=== PATIENT | male | born 1960 | race Hispanic/Latino ===

== ENCOUNTER 2019-04-29 18:32 | Emergency (ER) | payer OTHER ==
[~2019-04-29 18:32] MED LIST: ISOVUE-370 76%-LOCM 1 ML ONE
[2019-04-29 19:35] LABS: #Eosinphils 0.4 thou/uL (0.0-0.7); #Lymphocytes 1.9 thou/uL (1.20-3.40); #Monocytes 0.9 thou/uL (0.11-0.59); #Neutrophils 7.5 thou/uL (1.40-6.50); %Basophils 0.3 % (0.0-1.0); %Lymphocytes 17.9 % (21.0-51.0); %Monocytes 8.3 % (0.0-10.0); %Neutrophils 69.6 % (42.0-75.0); Mean Corpuscular HGB CONC 32.5 g/dL (32.0-36.0); Mean Corpuscular Hemoglobin 29.8 pg (27.0-31.0); Mean Corpuscular Volume 91.7 fL (78.0-98.0); Mean Platelet Volume 6.4 fL (7.4-10.4); Platelet Count 268 thou/uL (130-400); RBC Distribution Width 11.6 % (11.5-14.5); Red Blood Cell (RBC) Count 4.01 mill/uL (4.70-6.10); White Blood Cell (WBC) Count 10.8 thou/uL (4.8-10.8)
[2019-04-29 20:00] LABS: ALT (SGPT) 10 U/L (8-55); AST (SGOT) 15 U/L (5-34); Alkaline Phosphatase 123 U/L (40-150); Anion Gap 11 mmol/L (10-20); BUN (Urea Nitrogen) 13 mg/dL (8.4-25.7); Bilirubin, Total 0.5 mg/dL (0.2-1.2); CK (CPK) 99 U/L (30-200); Calc. Creatinine Clearance 0 mL/min (70-130); Calcium 9.4 mg/dL (7.8-10.44); Carbon Dioxide 29 mmol/L (22-29); Chloride 101 mmol/L (98-107); Estimated GFR-MDRD Greater than 90; Globulin 3.4 g/dL (2.4-3.5); Glucose 96 mg/dL (70-105); Lipase 10 U/L (8-78); Potassium 3.6 mmol/L (3.5-5.1); Protein, Total 7.4 g/dL (6.0-8.3); Sodium 137 mmol/L (136-145)
[2019-04-29] MEDS ORDERED: Aspirin Chewable 81 MG TAB ONE ×2 (20:10→20:12)
--- NOTE | 2019-04-29 20:15 | RAD ---
PORTABLE CHEST: 04/29/19 PROVIDED CLINICAL HISTORY: Cough. FINDINGS: Comparison 04/21/19. The cardiac silhouette appears normal. There is abnormal opacity overlying the right aspect of the mi d to lower thoracic spine, incompletely characterized on the basis of this study but suspicious for m ediastinal or parenchymal mass. The lungs appear otherwise clear. There is no pleural fluid or pneumo thorax apparent. IMPRESSION: Abnormal appearance to the mediastinum, suspicious for underlying mass. Correlation with CT is recomm ended. POS: RAYMOND
--- NOTE | 2019-04-29 21:29 | CT ---
EXAM: CT Chest W Con PROVIDED CLINICAL HISTORY: Chest pain, abnormal chest radiograph COMPARISON: None FINDINGS: There is a heterogeneously enhancing mass measuring about 3.6 x 5.5 cm in greatest transverse dimensi ons at the medial aspect of the right hemithorax within the superior segment of the right lower lobe. This extensively abuts the mediastinum and bronchus intermedius. There is an enlarged right hil ar lymph node measuring about 1.9 cm in transverse dimension. The heart, pericardium and great vessels demonstrate an otherwise unremarkable CT appearance of the e xception of vascular calcification. The lungs appear otherwise free of significant opacity. There is no pleural fluid or pneumothorax apparent. The airway appears patent and of normal caliber. The visualized portions of the upper abdomen demonstrate no acute abnormality. Gallstones are noted. The osseous structures demonstrate no concerning lytic or blastic lesions. IMPRESSION: 5.5 cm superior segment right lower lobe mass, suspicious for malignancy.
--- NOTE | 2019-05-02 13:04 | EKG ---
Test Reason : CP Blood Pressure : / mmHG Vent. Rate : 084 BPM Atrial Rate : 084 BPM P-R Int : 136 ms QRS Dur : 092 ms QT Int : 338 ms P-R-T Axes : 039 050 033 degrees QTc Int : 399 ms Normal sinus rhythm Normal ECG Confirmed by MANISHA NERI, KENNY Mcmillan ([id number]), editor producer ZANE GORDON ([id number]) on 05/02/2019 1:04:13 PM Referred By: JOE Confirmed By:KENNY DYER MD
== END 2019-04-29 21:59 | disposition home or self-care (01) ==
LOC: ERS 18:32
DX: R91.8 Other nonspecific abnormal finding of lung field (principal); R05 Cough
CPT/HCPCS: 71045; 71260; 80053; 82550; 83690; 83880; 84484; 85025; 93005; Q9966

== ENCOUNTER 2019-05-04 06:37 | Day surgery (SDC) | payer OTHER ==
[2019-04-30 15:23] VITALS: BMI 21.7
--- NOTE | 2019-04-30 15:47 | HP ---
HISTORY OF PRESENT ILLNESS: This is a 58-year-old gentleman, speaks no Maltese, who was brought to the office with the help of a form carpenter after he presented to the ER with a several-month history of coughing, chest pain, sweats, weight loss of about 10 pounds. Chest x-ray showed a right lower lobe mass in the superior segment. CAT scan of his chest confirmed the 5 x 5 superior segment right lower lobe mass. There appeared to be some mediastinum and bronchus intermedius obstruction. He has had a cough, which is nonproductive. No hemoptysis. He has never smoked. PAST MEDICAL HISTORY: Pertinent only for diabetes. He takes unknown medication. PREVIOUS SURGERIES: Appendix. 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 Alcohol, his says he drinks over the weekend. No substance abuse. REVIEW OF SYSTEMS: Ten-point negative. PHYSICAL EXAMINATION: VITAL SIGNS: Saturations are 96% on room air, pulse 80, respiratory rate 18, and blood pressure 130/80. There is no clubbing. There is no adenopathy. CHEST: Decreased breath sounds. Bilateral rhonchi, right greater than left. CARDIAC: Normal S1 and S2. No gallop. ABDOMEN: Soft without any masses. IMPRESSION: 1. Right lower lung superior segment mass, rule out bronchogenic carcinoma. 2. Nonsmoker. 3. Diabetes. Diagnostic bronchoscopy and biopsies are performed. Further recommendation as above. Job ID: [id number]
[2019-05-04] MEDS ORDERED: Lidocaine 2% Jelly 5 ML TUBE ONE (07:59)
[2019-05-04] MEDS ORDERED: Benzocaine 20% Spray 60 ML CAN ONE (08:10)
[2019-05-04] MEDS ORDERED: Lidocaine 1% (PF) 30 ML VIAL ONE ×2 (08:32→09:08)
[2019-05-04] MEDS ORDERED: Fentanyl 250 MCG/5 ML VIAL ONE (08:41)
[2019-05-04] MEDS ORDERED: Fentanyl 100 MCG/2 ML VIAL ONE (08:41)
[2019-05-04] MEDS ORDERED: Midazolam HCl 2 mg/2 ml Vial ONE (08:41)
[2019-05-04] MEDS ORDERED: Midazolam HCl 5 mg/5 ml Vial ONE (08:42)
--- NOTE | 2019-05-04 10:27 | OP ---
DATE OF PROCEDURE: 05/04/2019 PROCEDURE PERFORMED: Bronchoscopy with biopsy. INDICATION: Right lower lung mass, rule out bronchogenic carcinoma. POSTBRONCHOSCOPY DIAGNOSIS: Right lower lung mass, rule out bronchogenic carcinoma. DESCRIPTION OF PROCEDURE: After informed consent, the patient received 4 mL of 4% lidocaine and DuoNeb. During the procedure he received a total of 2 of Versed IV and 50 of fentanyl IV. The flexible Olympus 2.8 bronchoscope was passed via the right nostril. Pharynx, hypopharynx, and vocal cords were visualized, which were unremarkable. On entering the trachea, this was normal. [place] was sharp. The right lung was inspected initially. Right upper lobe was normal. The right bronchus intermedius was slightly nodular. The superior segment area had a completely occluded nodular, friable, bloody mass. The rest of the basilar segments visualized and unremarkable. This area was lavaged with normal saline. The left lung was inspected thereafter, which was completely normal. Multiple biopsies x4 and brushings from the right lower lung superior segment mass lesions were done. The patient tolerated the procedure well. There was bleeding, which was controlled with epinephrine, a total of 14 mL of 1:10,000. The brushing was sent for cytology. Washing was sent for cytology as well as acid-fast stain, Gram stain culture, and fungal smear and culture. Biopsy for histopathology. The patient otherwise tolerated the procedure well. BRIEF DISCHARGE NOTE: Results of the biopsy and brushings will be made available to the patient. Further recommendations as above. Job ID: [id number]
[2019-05-07 09:11] LABS: Fungus Stain Final report (.)
== END 2019-05-04 10:35 | disposition home or self-care (01) ==
LOC: SDC 06:37
PROVIDERS: ATTEND Internal Medicine Pulmonary Disease
PROC: 0B9F8ZX Drainage of Right Lower Lung Lobe, Via Natural or Artificial Opening Endoscopic, Diagnostic (ICD-10-PCS; principal; 2019-05-04)
PROC: 0B9C8ZX Drainage of Right Upper Lung Lobe, Via Natural or Artificial Opening Endoscopic, Diagnostic (ICD-10-PCS; principal; 2019-05-04)
PROC: 0BDF8ZX Extraction of Right Lower Lung Lobe, Via Natural or Artificial Opening Endoscopic, Diagnostic (ICD-10-PCS; principal; 2019-05-04)
DX: C34.31 Malignant neoplasm of lower lobe, right bronchus or lung (principal); E11.9 Type 2 diabetes mellitus without complications; Z79.84 Long term (current) use of oral hypoglycemic drugs; Z79.899 Other long term (current) drug therapy
CPT/HCPCS: 87070; 87102; 87116; 87205; 87206; 88104; 88112; 88305; 88313; 99152; 99153; J2001; J2250; J3010; J7620

== ENCOUNTER 2019-05-14 07:22 | Outpatient (CLI) | payer OTHER ==
--- NOTE | 2019-05-14 13:37 | PET ---
PET SCAN WITH CT ATTENUATION CORRECTION: HISTORY: Right perihilar/superior segment right lower lobe mass. COMPARISON: None. CORRELATION: CT chest dated 04/29/19. TECHNIQUE: PET scanning with CT attenuation correction is performed from the base of the brain to the proximal t highs following the intravenous administration of 10.2 mCi F18-FDG. FINDINGS: HEAD/NECK: Increased FDG avidity involving the right thyroid lobe with a maximum SUV of 3.4. CHEST: Increased FDG avidity in the right perihilar region, superior segment of the right lower lobe, as wel l as the right aspect of the mediastinum. Maximum SUV ranges between [address] used for attenuation correction demonstrates dependent atelectatic changes. ABDOMEN/PELVIS: Increased FDG avidity involving the right adrenal gland with a maximum SUV of 4.5. Increased FDG avid ity involving the left adrenal gland with a maximum SUV of 23.8. OSSEOUS STRUCTURES: No abnormal FDG localization. IMPRESSION: 1. Mass involving the superior segment of the right lower lobe with extension to the right perihilar region and right mediastinum. There is associated marked SUV avidity. 2. FDG avidity involving both adrenal glands compatible with adrenal metastasis. 3. Abnormal FDG avidity involving the right thyroid lobe, incompletely evaluated. Nonemergent thyroi d ultrasound. POS: RAYMOND
== END 2019-05-14 07:23 | disposition home or self-care (01) ==
LOC: PET 07:22
PROVIDERS: ATTEND Internal Medicine Pulmonary Disease
DX: C34.90 Malignant neoplasm of unspecified part of unspecified bronchus or lung (principal); E11.9 Type 2 diabetes mellitus without complications; R91.8 Other nonspecific abnormal finding of lung field
CPT/HCPCS: 78815; A9552

== ENCOUNTER 2019-05-19 07:21 | Outpatient (CLI) | payer OTHER ==
--- NOTE | 2019-05-19 08:51 | CT ---
CT BRAIN WITH AND WITHOUT IV CONTRAST: HISTORY: Malignant neoplasm of right bronchus, exam requested for staging FINDINGS: No evidence of infarct, hemorrhage, mass, midline shift or abnormal extra axial fluid collections is seen. The ventricular size is normal and the basilar cisterns are patent. No abnormal postcontrast enhancement is seen. The bony calvarium is intact. The visualized paranasal sinuses are well-aerated. IMPRESSION: Normal exam.
[2019-05-19] MEDS ORDERED: Iopamidol 370 76% 100 ML VIAL ONE (14:43)
== END 2019-05-19 07:22 | disposition home or self-care (01) ==
LOC: CT 07:21
PROVIDERS: ATTEND Internal Medicine Hematology & Oncology
DX: C34.31 Malignant neoplasm of lower lobe, right bronchus or lung (principal)
CPT/HCPCS: 70470; Q9967

== ENCOUNTER 2019-07-28 09:47 | Outpatient (CLI) | payer OTHER ==
[~2019-07-28 09:47] MED LIST changes: -ISOVUE-370 76%-LOCM 1 ML ONE; +Iopamidol 370 76% 100 ML VIAL ONE
--- NOTE | 2019-07-28 11:59 | CT ---
CT THORAX WITH CONTRAST CT ABDOMEN WITH CONTRAST: DATE: 07/28/2019 HISTORY: 58-year-old male with right lower lobe lung cancer C 34.31 COMPARISON: Chest CT of 04/29/2019 and PET scan of 05/14/2019 TECHNIQUE: IV iodinated contrast media: Administered Oral contrast media: Not administered Single phase scans of thorax and abdomen. FINDINGS: The mass at the superior segment of the right lower lobe, previously measuring approximately 5.5 x 3. 5 x 5.5 cm, currently measures approximately 2 x 1.5 x 3.5 cm. It broadly abuts the posterior aspect of the right hilum. Currently, no definite mediastinal involvement or mediastinal lymphadenopa thy. The previously demonstrated 1.9 cm right hilar lymph node is much smaller and currently difficult to appreciate. The previously demonstrated 1.5 x 1 cm left adrenal nodule which was FDG-dario d, is no longer visualized. There is no right adrenal nodule visible either on the current CT or previous, despite the tiny focus of increased uptake in the right adrenal on the PET scan. No suspicious other pulmonary nodules. Trachea and major bronchi are patent and clear. No thoracic ao rtic aneurysm, cardiomegaly, pericardial effusion, pleural effusion, or pneumothorax. Multiple tiny calcified gallstones have migrated to the proximal body near the neck of the gallbladder. The gallbla dder is collapsed, nearly empty. The liver, abdominal aorta, bilateral kidneys, right adrenal, and spleen, appear normal. The visualized upper portions of the colon and small intestine, are unremarkab le. No evidence of mesenteric, retroperitoneal, or se hepatis lymphadenopathy. IMPRESSION: 1) significant interval response to therapy. The right lower lobe primary lung cancer has significant ly decreased in size. 2) the metastatic left adrenal nodule has resolved on imaging.
== END 2019-07-28 09:48 | disposition home or self-care (01) ==
LOC: SCSCT 09:47
PROVIDERS: ATTEND Internal Medicine Hematology & Oncology
DX: C34.31 Malignant neoplasm of lower lobe, right bronchus or lung (principal)
CPT/HCPCS: 71260; 74160; Q9967

== ENCOUNTER 2020-03-15 08:36 | Outpatient (CLI) | payer BC ==
--- NOTE | 2020-03-15 12:23 | CT ---
CHEST AND ABDOMEN CT SCAN WITH IV CONTRAST: Date: 03/15/2020 HISTORY: C34.31, malignant neoplasm of lower lobe right bronchus or lung. COMPARISON: 11/13/2019. FINDINGS: Again noted is fairly extensive bilateral chronic lung change including some subpleural honeycombing and linear and interstitial parenchymal changes, as well as some subtle right lower lobe bronchiectas is, all of which are stable. No pleural effusion or pericardial effusion. No mediastinal mass or prakash opathy. Liver appears unremarkable without evidence for metastasis. Status post cholecystectomy. Stable appea ring adrenal glands. Pancreas, spleen, and kidneys appear unremarkable. No evidence for retroperitone al adenopathy. IMPRESSION: 1. Stable bilateral chronic lung changes. 2. No evidence for metastasis. 3. Stable appearance from prior study of 11/13/2019. POS: RRE
== END 2020-03-15 08:37 | disposition home or self-care (01) ==
LOC: SCSCT 08:36
PROVIDERS: ATTEND Internal Medicine Hematology & Oncology
DX: C34.31 Malignant neoplasm of lower lobe, right bronchus or lung (principal)
CPT/HCPCS: 71250; 74160

== ENCOUNTER 2020-09-05 08:43 | Outpatient (CLI) | payer OTHER ==
--- NOTE | 2020-09-05 09:51 | CT ---
EXAM: CT chest and abdomen with IV contrast: HISTORY: Malignant neoplasm of lower lobe, right bronchus or lung. COMPARISON: 06/13/2020 FINDINGS: CT THORAX: Lungs: Again noted are the peripherally located interstitial densities within the lungs bilaterally g reater in the lower lobe suggesting chronic interstitial lung changes. A 4 mm pulmonary nodule is again seen in the right middle lobe which is similar in size compared to prior study as well as study on 07/28/2019. A few stable pleural-based nodular densities are seen along the minor fissure. Calcified granuloma is present in the lingula. No new discrete pulmonary nodule or mass is identified . No filling defects are seen in the visualized large airways. Pleura: No pleural effusion. Lymph nodes: No enlarged lymph nodes are seen by CT size criteria. Mediastinum: Right subclavian Mediport catheter remains in place. Vascular calcifications are seen in the aortic arch. Chest wall: No abnormalities CT ABDOMEN: Liver: Within normal limits. Gallbladder: Surgically absent.\ Pancreas: Within normal limits. Spleen: Within normal limits. Adrenal glands: Within normal limits. Kidneys: Within normal limits. Bowel: Normal in caliber. Adenopathy:No enlarged lymph nodes are seen in the abdomen. Peritoneum: No free fluid or fluid collection is seen. No free intraperitoneal gas is identified. Abdominal wall: No abnormalities seen. Osseous structures: Degenerative changes in the spine. No suspicious lytic or sclerotic osseous lesio n is seen. IMPRESSION: 1. No CT findings to suggest metastatic disease involving the chest or abdomen. 2. Stable nonspecific 4 mm pulmonary nodule right middle lobe with stable chronic lung changes bilate rally. 3. Postcholecystectomy changes.
[2020-09-05] MEDS ORDERED: Iopamidol-370 76% 500 ML 1 ML ONE (12:15)
== END 2020-09-05 08:44 | disposition home or self-care (01) ==
LOC: BICCT 08:43
PROVIDERS: ATTEND Internal Medicine Hematology & Oncology
DX: C34.31 Malignant neoplasm of lower lobe, right bronchus or lung (principal); R91.1 Solitary pulmonary nodule; J98.4 Other disorders of lung; Z90.49 Acquired absence of other specified parts of digestive tract
CPT/HCPCS: 71260; 74160; Q9967

== ENCOUNTER 2021-02-27 09:03 | Outpatient (CLI) | payer OTHER ==
[2021-02-27] MEDS ORDERED: Iopamidol-370 76% 500 ML 1 ML ONE (11:02)
== END 2021-02-27 09:04 | disposition home or self-care (01) ==
LOC: BICCT 09:03
PROVIDERS: ATTEND Internal Medicine Hematology & Oncology
DX: C34.31 Malignant neoplasm of lower lobe, right bronchus or lung (principal)
CPT/HCPCS: 71260; 74160; Q9967

== ENCOUNTER 2021-09-14 09:01 | Outpatient (CLI) | payer OTHER | END 2021-09-14 09:02 | disposition home or self-care (01) | LOC: MRI 09:01 | PROVIDERS: ATTEND Radiology Radiation Oncology | DX: C79.31 Secondary malignant neoplasm of brain (principal) | CPT/HCPCS: 70553 ==

== ENCOUNTER 2021-09-28 08:24 | Outpatient (CLI) | payer OTHER | END 2021-09-28 08:25 | disposition home or self-care (01) | LOC: CT 08:24 | PROVIDERS: ATTEND Internal Medicine Hematology & Oncology | DX: C34.31 Malignant neoplasm of lower lobe, right bronchus or lung (principal); R91.1 Solitary pulmonary nodule; J84.10 Pulmonary fibrosis, unspecified | CPT/HCPCS: 71260; 74160; 78306; A9503 ==

== ENCOUNTER 2021-10-29 17:30 | Inpatient (IN) | payer MEDICAID, SELFPAY ==
[2021-10-29] MEDS ORDERED: Acetaminophen 325 MG TAB PO PRN (21:27)
[2021-10-29] MEDS ORDERED: Morphine 4 MG/ML VIAL SLOW IVP PRN (21:39)
[2021-10-29] MEDS ORDERED: Dextrose 5% in Water 1,000 ML IV PRN (21:44)
[2021-10-29] MEDS ORDERED: Dextrose 50% Abboject 50 ML SYRINGE SLOW IVP PRN (21:44)
[2021-10-29] MEDS ORDERED: Fentanyl CADD 100 ML IV SCH (21:45)
[2021-10-29] MEDS ORDERED: fentaNYL Citrate-0.9 % NaCl/PF 100 ML IV SCH (21:45)
[2021-10-29] MEDS ORDERED: Morphine 2 MG/ML VIAL SLOW IVP PRN (21:45)
[2021-10-29] MEDS ORDERED: Propofol BOLUS 1,000 MG/100 ML VIAL IV PRN (21:45)
[2021-10-29] MEDS ORDERED: Pantoprazole 40 MG VIAL IVP SCH (21:45)
[2021-10-29] MEDS ORDERED: DISCONTINUE PREVIOUS NARCOTIC PAIN MEDICATIONS AND BENZODIAZEPINES FS SCH (21:45)
[2021-10-29] MEDS ORDERED: Fentanyl BOLUS 250 ML IVPB PRN (21:45)
[2021-10-29 22:18] LABS: #Lymphocytes 0.5 thou/uL (1.20-3.40); #Monocytes 0.2 thou/uL (0.11-0.59); #Neutrophils 7.5 thou/uL (1.40-6.50); %Basophils 0.2 % (0.0-1.0); %Eosinophils 0.2 % (0.0-10.0); %Lymphocytes 5.5 % (21.0-51.0); %Monocytes 1.9 % (0.0-10.0); %Neutrophils 92.2 % (42.0-75.0); Hemoglobin 13.3 g/dL (14.0-18.0); Mean Corpuscular HGB CONC 34.3 g/dL (32.0-36.0); Mean Corpuscular Volume 90.4 fL (78.0-98.0); Mean Platelet Volume 6.4 fL (7.4-10.4); Platelet Count 180 thou/uL (130-400); RBC Distribution Width 12.1 % (11.5-14.5); Red Blood Cell (RBC) Count 4.28 mill/uL (4.70-6.10); White Blood Cell (WBC) Count 8.1 thou/uL (4.8-10.8)
[2021-10-29 22:33] LABS: Hemoglobin A1c 5.5 % (4.0-6.0)
[2021-10-29 22:37] LABS: ALT (SGPT) 10 U/L (8-55); AST (SGOT) 12 U/L (5-34); Albumin 3.8 g/dL (3.5-5.0); Alkaline Phosphatase 103 U/L (40-110); Anion Gap 14 mmol/L (10-20); BUN (Urea Nitrogen) 12 mg/dL (8.4-25.7); Bilirubin, Total 0.8 mg/dL (0.2-1.2); CK (CPK) 47 U/L (30-200); Calc. Creatinine Clearance 104 mL/min (70-130); Calcium 9.4 mg/dL (7.8-10.44); Carbon Dioxide 22 mmol/L (22-29); Chloride 102 mmol/L (98-107); Globulin 2.8 g/dL (2.4-3.5); Glucose 211 mg/dL (70-105); Potassium 4.1 mmol/L (3.5-5.1); Protein, Total 6.6 g/dL (6.0-8.3); Sodium 134 mmol/L (136-145)
[2021-10-29] MEDS: Lactated Ringer's 1,000 ML IV SCH (22:54)
[2021-10-29] MEDS: Dexamethasone 4 mg/ml Vial SLOW IVP SCH (22:55)
[2021-10-29] MEDS ORDERED: Dexamethasone 4 MG in Sodium Chloride 0.9% 50 ML IVPB SCH (23:59)
[2021-10-30 04:01] LABS: #Basophils 0.1 thou/uL (0.0-0.2); #Lymphocytes 0.5 thou/uL (1.20-3.40); #Monocytes 0.2 thou/uL (0.11-0.59); #Neutrophils 7.4 thou/uL (1.40-6.50); %Basophils 0.9 % (0.0-1.0); %Eosinophils 0.1 % (0.0-10.0); %Lymphocytes 6.6 % (21.0-51.0); %Monocytes 2.6 % (0.0-10.0); %Neutrophils 89.9 % (42.0-75.0); Hemoglobin 12.8 g/dL (14.0-18.0); Mean Corpuscular HGB CONC 34.1 g/dL (32.0-36.0); Mean Corpuscular Hemoglobin 30.5 pg (27.0-31.0); Mean Corpuscular Volume 89.6 fL (78.0-98.0); Mean Platelet Volume 6.9 fL (7.4-10.4); Platelet Count 197 thou/uL (130-400); RBC Distribution Width 12.2 % (11.5-14.5); Red Blood Cell (RBC) Count 4.18 mill/uL (4.70-6.10); White Blood Cell (WBC) Count 8.2 thou/uL (4.8-10.8)
[2021-10-30 04:20] LABS: ALT (SGPT) 10 U/L (8-55); AST (SGOT) 12 U/L (5-34); Albumin 3.7 g/dL (3.5-5.0); Alkaline Phosphatase 99 U/L (40-110); Anion Gap 15 mmol/L (10-20); BUN (Urea Nitrogen) 13 mg/dL (8.4-25.7); Bilirubin, Total 0.7 mg/dL (0.2-1.2); Calc. Creatinine Clearance 96 mL/min (70-130); Calcium 9.3 mg/dL (7.8-10.44); Carbon Dioxide 21 mmol/L (22-29); Chloride 103 mmol/L (98-107); Globulin 2.6 g/dL (2.4-3.5); Glucose 213 mg/dL (70-105); Protein, Total 6.3 g/dL (6.0-8.3); Sodium 135 mmol/L (136-145)
[2021-10-30] MEDS: Dexamethasone 4 mg/ml Vial SLOW IVP SCH ×4 (05:10→23:54)
[2021-10-30] MEDS: Propofol 1,000 MG/100 ML VIAL IV PRN ×2 (05:42→07:21)
[2021-10-30] MEDS: HumaLOG 300 UNITS/3 ML VIAL SC PRN ×4 (06:09→21:01)
[2021-10-30] MEDS: Lactated Ringer's 1,000 ML IV SCH ×2 (07:21→12:34)
[2021-10-30] MEDS: Pantoprazole 40 MG VIAL IVP SCH ×2 (07:22→20:06)
[2021-10-30] MEDS: Lorazepam 2 MG/ML VIAL SLOW IVP PRN ×4 (08:55→16:25)
[2021-10-30] MEDS ORDERED: FLU VACC QS2021-22(6MOS UP)/PF 60 MCG/0.5 ML SYRINGE IM ONE (09:00)
[2021-10-30] MEDS ORDERED: Pantoprazole 40 MG VIAL IVP SCH ×2 (09:00)
[2021-10-30] MEDS ORDERED: Prevnar 13-Val Conj/PF 0.5 ML SYRINGE IM ONE (09:00)
[2021-10-30 09:06] LABS: Actual Bicarbonate (HCO3a) 24.5 mEq/L (22-28); Base Excess (BEa) 1.5 mEq/L (-2.0 to +3.0); CO2 Tension 33.5 mmHg (35.0-45.0); Calcium, Ionized (arterial) 1.17 mmol/L (1.12-1.30); Carboxyhemoglobin (COHb) 0.3 gm% (0.0-3.0); Hemoglobin (Hb) 13.3 g/dL (14.0-18.0); O2 Tension (PaO2), arterial 240.4 mmHg (80.0-100.0); Potassium - ABG Lab 3.99 mmol/L (3.70-5.30); pH, Arterial 7.48 (7.35-7.45)
[2021-10-30 09:08] LABS: ALV-art Gradient 216.825 mmHg (0-20); Puncture Site LRA
[2021-10-30] MEDS ORDERED: Enoxaparin Sodium 40 MG/0.4 ML SYRINGE SC SCH (11:00)
[2021-10-31] MEDS: Lorazepam 2 MG/ML VIAL SLOW IVP PRN (00:59)
[2021-10-31] MEDS: Lactated Ringer's 1,000 ML IV SCH ×3 (00:59→19:35)
[2021-10-31 05:41] LABS: Band 7 % (5-11); Hemoglobin 12.9 g/dL (14.0-18.0); Lymphocytes 8 % (21-51); MDiff Complete? YES; Mean Corpuscular HGB CONC 33.8 g/dL (32.0-36.0); Mean Corpuscular Volume 91.7 fL (78.0-98.0); Mean Platelet Volume 6.9 fL (7.4-10.4); Monocytes 2 % (0-10); Neutrophil 83 % (42-75); Platelet Count 226 thou/uL (130-400); RBC Distribution Width 12.2 % (11.5-14.5); Red Blood Cell (RBC) Count 4.17 mill/uL (4.70-6.10); White Blood Cell (WBC) Count 15.8 thou/uL (4.8-10.8)
[2021-10-31 05:55] LABS: ALT (SGPT) 23 U/L (8-55); AST (SGOT) 22 U/L (5-34); Albumin 3.5 g/dL (3.5-5.0); Alkaline Phosphatase 91 U/L (40-110); Anion Gap 13 mmol/L (10-20); BUN (Urea Nitrogen) 15 mg/dL (8.4-25.7); Calc. Creatinine Clearance 116 mL/min (70-130); Carbon Dioxide 24 mmol/L (22-29); Chloride 102 mmol/L (98-107); Globulin 2.6 g/dL (2.4-3.5); Glucose 195 mg/dL (70-105); Potassium 3.8 mmol/L (3.5-5.1); Protein, Total 6.1 g/dL (6.0-8.3); Sodium 135 mmol/L (136-145)
[2021-10-31] MEDS: Dexamethasone 4 mg/ml Vial SLOW IVP SCH ×4 (06:11→23:58)
[2021-10-31] MEDS: HumaLOG 300 UNITS/3 ML VIAL SC PRN ×3 (06:11→18:00)
[2021-10-31] MEDS: Pantoprazole 40 MG VIAL IVP SCH ×2 (08:37→21:31)
[2021-10-31] MEDS: Enoxaparin Sodium 40 MG/0.4 ML SYRINGE SC SCH (08:37)
[2021-10-31] MEDS: Propofol 1,000 MG/100 ML VIAL IV PRN (09:09)
[2021-10-31] MEDS ORDERED: Dexmedetomidine 1,000 MCG in Sodium Chloride 0.9% 250 ML 240 ML IVPB SCH (21:15)
[2021-11-01 04:23] LABS: #Basophils 0.1 thou/uL (0.0-0.2); #Lymphocytes 0.8 thou/uL (1.20-3.40); #Monocytes 0.6 thou/uL (0.11-0.59); #Neutrophils 10.8 thou/uL (1.40-6.50); %Basophils 0.4 % (0.0-1.0); %Lymphocytes 6.9 % (21.0-51.0); %Monocytes 4.7 % (0.0-10.0); Hemoglobin 13.8 g/dL (14.0-18.0); Mean Corpuscular HGB CONC 34.1 g/dL (32.0-36.0); Mean Platelet Volume 6.5 fL (7.4-10.4); Platelet Count 228 thou/uL (130-400); RBC Distribution Width 12.1 % (11.5-14.5); Red Blood Cell (RBC) Count 4.45 mill/uL (4.70-6.10); White Blood Cell (WBC) Count 12.3 thou/uL (4.8-10.8)
[2021-11-01 04:47] LABS: ALT (SGPT) 38 U/L (8-55); AST (SGOT) 26 U/L (5-34); Albumin 3.5 g/dL (3.5-5.0); Alkaline Phosphatase 94 U/L (40-110); Anion Gap 13 mmol/L (10-20); BUN (Urea Nitrogen) 17 mg/dL (8.4-25.7); Bilirubin, Total 0.9 mg/dL (0.2-1.2); Calc. Creatinine Clearance 122 mL/min (70-130); Carbon Dioxide 23 mmol/L (22-29); Chloride 103 mmol/L (98-107); Globulin 2.8 g/dL (2.4-3.5); Glucose 186 mg/dL (70-105); Potassium 3.9 mmol/L (3.5-5.1); Protein, Total 6.3 g/dL (6.0-8.3); Sodium 135 mmol/L (136-145)
[2021-11-01] MEDS: Dexamethasone 4 mg/ml Vial SLOW IVP SCH ×3 (06:04→17:03)
[2021-11-01] MEDS: Lactated Ringer's 1,000 ML IV SCH ×2 (06:04→13:58)
[2021-11-01] MEDS: HumaLOG 300 UNITS/3 ML VIAL SC PRN ×2 (06:08→21:29)
[2021-11-01] MEDS: Enoxaparin Sodium 40 MG/0.4 ML SYRINGE SC SCH (08:15)
[2021-11-01] MEDS: Pantoprazole 40 MG VIAL IVP SCH ×2 (08:15→20:05)
[2021-11-02] MEDS: Dexamethasone 4 mg/ml Vial SLOW IVP SCH ×4 (00:02→17:09)
[2021-11-02] MEDS: Lactated Ringer's 1,000 ML IV SCH (01:11)
[2021-11-02 04:22] LABS: #Basophils 0.1 thou/uL (0.0-0.2)
[2021-11-02 04:47] LABS: #Lymphocytes 0.9 thou/uL (1.20-3.40); #Monocytes 0.7 thou/uL (0.11-0.59); #Neutrophils 10.1 thou/uL (1.40-6.50); %Basophils 0.8 % (0.0-1.0); %Eosinophils 0.2 % (0.0-10.0); %Lymphocytes 7.3 % (21.0-51.0); %Monocytes 5.9 % (0.0-10.0); %Neutrophils 85.9 % (42.0-75.0); Mean Corpuscular HGB CONC 33.9 g/dL (32.0-36.0); Mean Corpuscular Hemoglobin 30.7 pg (27.0-31.0); Mean Corpuscular Volume 90.4 fL (78.0-98.0); Platelet Count 264 thou/uL (130-400); Red Blood Cell (RBC) Count 4.55 mill/uL (4.70-6.10); White Blood Cell (WBC) Count 11.8 thou/uL (4.8-10.8)
[2021-11-02 04:47] LABS: ALT (SGPT) 39 U/L (8-55); AST (SGOT) 34 U/L (5-34); Albumin 3.4 g/dL (3.5-5.0); Alkaline Phosphatase 101 U/L (40-110); Anion Gap 13 mmol/L (10-20); BUN (Urea Nitrogen) 21 mg/dL (8.4-25.7); Bilirubin, Total 0.8 mg/dL (0.2-1.2); Calc. Creatinine Clearance 115 mL/min (70-130); Calcium 8.7 mg/dL (7.8-10.44); Carbon Dioxide 23 mmol/L (22-29); Chloride 103 mmol/L (98-107); Globulin 2.9 g/dL (2.4-3.5); Glucose 167 mg/dL (70-105); Potassium 4.1 mmol/L (3.5-5.1); Protein, Total 6.3 g/dL (6.0-8.3); Sodium 135 mmol/L (136-145)
[2021-11-02] MEDS: Pantoprazole 40 MG VIAL IVP SCH ×2 (08:20→20:15)
[2021-11-02] MEDS: Enoxaparin Sodium 40 MG/0.4 ML SYRINGE SC SCH (08:20)
[2021-11-02] MEDS: HumaLOG 300 UNITS/3 ML VIAL SC PRN ×3 (12:22→20:29)
[2021-11-03] MEDS: Dexamethasone 4 mg/ml Vial SLOW IVP SCH ×5 (00:04→23:25)
[2021-11-03 05:36] VITALS: BMI 23.5
[2021-11-03] MEDS: Enoxaparin Sodium 40 MG/0.4 ML SYRINGE SC SCH (08:29)
[2021-11-03] MEDS: Pantoprazole 40 MG VIAL IVP SCH (08:33)
[2021-11-03 09:20] LABS: Hemoglobin 13.2 g/dL (14.0-18.0); Mean Corpuscular HGB CONC 33.8 g/dL (32.0-36.0); Mean Corpuscular Hemoglobin 31.2 pg (27.0-31.0); Mean Corpuscular Volume 92.1 fL (78.0-98.0); Mean Platelet Volume 6.6 fL (7.4-10.4); Platelet Count 261 thou/uL (130-400); RBC Distribution Width 11.9 % (11.5-14.5); Red Blood Cell (RBC) Count 4.25 mill/uL (4.70-6.10); White Blood Cell (WBC) Count 12.6 thou/uL (4.8-10.8)
[2021-11-03 09:31] LABS: ALT (SGPT) 30 U/L (8-55); AST (SGOT) 17 U/L (5-34); Albumin 3.7 g/dL (3.5-5.0); Alkaline Phosphatase 104 U/L (40-110); Anion Gap 15 mmol/L (10-20); BUN (Urea Nitrogen) 20 mg/dL (8.4-25.7); Bilirubin, Total 0.7 mg/dL (0.2-1.2); Calc. Creatinine Clearance 100 mL/min (70-130); Calcium 8.9 mg/dL (7.8-10.44); Carbon Dioxide 24 mmol/L (22-29); Chloride 102 mmol/L (98-107); Globulin 2.3 g/dL (2.4-3.5); Glucose 202 mg/dL (70-105); Sodium 137 mmol/L (136-145)
[2021-11-03 12:38] LABS: Band 10 % (5-11); Lymphocytes 5 % (21-51); MDiff Complete? YES; Neutrophil 81 % (42-75); Platelet Morphology Comment Appears Adequate; RBC Morphology Normal; Reactive Lymphocytes 4 % (0-10)
[2021-11-03] MEDS: HumaLOG 300 UNITS/3 ML VIAL SC PRN ×3 (14:17→23:11)
[2021-11-03] MEDS: metFORMIN 500 MG TAB PO SCH (18:11)
[2021-11-04] MEDS ORDERED: Melatonin 3 MG TAB PO SCH ×2 (01:00→21:00)
[2021-11-04] MEDS: Dexamethasone 4 mg/ml Vial SLOW IVP SCH ×4 (05:10→23:04)
[2021-11-04] MEDS: HumaLOG 300 UNITS/3 ML VIAL SC PRN ×4 (05:10→20:05)
[2021-11-04] MEDS: Enoxaparin Sodium 40 MG/0.4 ML SYRINGE SC SCH (08:13)
[2021-11-04] MEDS: metFORMIN 500 MG TAB PO SCH ×2 (08:13→17:25)
[2021-11-04] MEDS ORDERED: Magnevist 469MG/ML 20 ML VIAL ONE (10:45)
[2021-11-04 18:28] LABS: #Eosinphils 0.1 thou/uL (0.0-0.7); #Lymphocytes 1.4 thou/uL (1.20-3.40); #Monocytes 0.7 thou/uL (0.11-0.59); #Neutrophils 10.6 thou/uL (1.40-6.50); %Eosinophils 1.1 % (0.0-10.0); %Lymphocytes 11.1 % (21.0-51.0); %Monocytes 5.2 % (0.0-10.0); %Neutrophils 82.6 % (42.0-75.0); Mean Corpuscular HGB CONC 33.7 g/dL (32.0-36.0); Mean Corpuscular Hemoglobin 30.9 pg (27.0-31.0); Mean Corpuscular Volume 91.7 fL (78.0-98.0); Mean Platelet Volume 6.6 fL (7.4-10.4); Platelet Count 282 thou/uL (130-400); RBC Distribution Width 11.9 % (11.5-14.5); Red Blood Cell (RBC) Count 4.53 mill/uL (4.70-6.10); White Blood Cell (WBC) Count 12.9 thou/uL (4.8-10.8)
[2021-11-04 18:42] LABS: ALT (SGPT) 24 U/L (8-55); AST (SGOT) 13 U/L (5-34); Albumin 3.8 g/dL (3.5-5.0); Alkaline Phosphatase 109 U/L (40-110); Anion Gap 14 mmol/L (10-20); BUN (Urea Nitrogen) 20 mg/dL (8.4-25.7); Bilirubin, Total 0.5 mg/dL (0.2-1.2); Calc. Creatinine Clearance 99 mL/min (70-130); Calcium 9.2 mg/dL (7.8-10.44); Carbon Dioxide 23 mmol/L (22-29); Chloride 99 mmol/L (98-107); Globulin 2.8 g/dL (2.4-3.5); Glucose 241 mg/dL (70-105); Potassium 4.1 mmol/L (3.5-5.1); Protein, Total 6.6 g/dL (6.0-8.3); Sodium 132 mmol/L (136-145)
[2021-11-05] MEDS: Dexamethasone 4 mg/ml Vial SLOW IVP SCH ×2 (05:59→12:35)
[2021-11-05] MEDS: HumaLOG 300 UNITS/3 ML VIAL SC PRN (05:59)
[2021-11-05] MEDS: Enoxaparin Sodium 40 MG/0.4 ML SYRINGE SC SCH (08:09)
[2021-11-05] MEDS: metFORMIN 500 MG TAB PO SCH (08:10)
[2021-11-05 08:29] LABS: ALT (SGPT) 22 U/L (8-55); AST (SGOT) 12 U/L (5-34); Albumin 3.7 g/dL (3.5-5.0); Alkaline Phosphatase 94 U/L (40-110); Anion Gap 13 mmol/L (10-20); BUN (Urea Nitrogen) 17 mg/dL (8.4-25.7); Bilirubin, Total 0.7 mg/dL (0.2-1.2); Calc. Creatinine Clearance 104 mL/min (70-130); Carbon Dioxide 25 mmol/L (22-29); Chloride 100 mmol/L (98-107); Globulin 2.7 g/dL (2.4-3.5); Glucose 151 mg/dL (70-105); Protein, Total 6.4 g/dL (6.0-8.3); Sodium 134 mmol/L (136-145)
[2021-11-05] MEDS ORDERED: Lantus 1000 UNITS/10 ML VIAL SC SCH (09:00)
[2021-11-05 11:34] LABS: Hemoglobin 13.9 g/dL (14.0-18.0); Lymphocytes 12 % (21-51); MDiff Complete? YES; Mean Corpuscular HGB CONC 34.9 g/dL (32.0-36.0); Mean Corpuscular Hemoglobin 31.9 pg (27.0-31.0); Mean Corpuscular Volume 91.5 fL (78.0-98.0); Mean Platelet Volume 6.5 fL (7.4-10.4); Monocytes 5 % (0-10); Neutrophil 82 % (42-75); Platelet Count 270 thou/uL (130-400); Platelet Morphology Comment Appears Adequate; RBC Distribution Width 11.8 % (11.5-14.5); Reactive Lymphocytes 1 % (0-10); Red Blood Cell (RBC) Count 4.34 mill/uL (4.70-6.10); Vacuoles SLIGHT; White Blood Cell (WBC) Count 13.5 thou/uL (4.8-10.8)
[2021-11-05 12:42] VITALS: BP 123/78; TEMP 98
== END 2021-11-05 13:40 | disposition home or self-care (01) | DRG 54 ==
LOC: CCU 17:30 → T4-A 11-02 17:02
PROVIDERS: ADMIT Student in an Organized Health Care Education/Training Program; ATTEND Student in an Organized Health Care Education/Training Program
PROC: 5A1945Z Respiratory Ventilation, 24-96 Consecutive Hours (ICD-10-PCS; principal; 2021-10-29)
PROC: 3E0333Z Introduction of Anti-inflammatory into Peripheral Vein, Percutaneous Approach (ICD-10-PCS; 2021-10-29)
DX: C79.31 Secondary malignant neoplasm of brain (principal); G93.6 Cerebral edema; G93.5 Compression of brain; U07.1 COVID-19; C34.91 Malignant neoplasm of unspecified part of right bronchus or lung; T38.0X5A Adverse effect of glucocorticoids and synthetic analogues, initial encounter; G47.00 Insomnia, unspecified; E11.65 Type 2 diabetes mellitus with hyperglycemia; Z86.16 Personal history of COVID-19; Z86.73 Personal history of transient ischemic attack (TIA), and cerebral infarction without residual deficits; Z87.01 Personal history of pneumonia (recurrent); Z79.84 Long term (current) use of oral hypoglycemic drugs; Z79.899 Other long term (current) drug therapy; Z90.49 Acquired absence of other specified parts of digestive tract; Z78.1 Physical restraint status
CPT/HCPCS: 36415; 36416; 36600; 70553; 71045; 80053; 82550; 82805; 83036; 85007; 85025; 85027; 94002; 94003; A9579; C9113; J1100; J1650; J1815; J2060; J2704; J3490; J7050; J7120

== ENCOUNTER 2022-03-28 12:08 | Outpatient (CLI) | payer OTHER | END 2022-03-28 12:09 | disposition home or self-care (01) | LOC: TBSIIMAG 12:08 | PROVIDERS: ATTEND Radiology Radiation Oncology | DX: C79.31 Secondary malignant neoplasm of brain (principal); Z98.890 Other specified postprocedural states | CPT/HCPCS: 70553 ==

== ENCOUNTER 2022-06-05 07:55 | Outpatient (CLI) | payer OTHER ==
[2022-06-05] MEDS ORDERED: Iopamidol 370 76% 100 ML VIAL ONE (08:54)
== END 2022-06-05 07:56 | disposition home or self-care (01) ==
LOC: CT 07:55
PROVIDERS: ATTEND Internal Medicine Hematology & Oncology
DX: C34.31 Malignant neoplasm of lower lobe, right bronchus or lung (principal)
CPT/HCPCS: 71260; 74177; Q9967

== ENCOUNTER 2022-10-10 09:24 | Outpatient (CLI) | payer OTHER | END 2022-10-10 09:25 | disposition home or self-care (01) | LOC: SCSMRI 09:24 | PROVIDERS: ATTEND Radiology Radiation Oncology | DX: C79.31 Secondary malignant neoplasm of brain (principal); C34.90 Malignant neoplasm of unspecified part of unspecified bronchus or lung; Z98.890 Other specified postprocedural states; Z92.3 Personal history of irradiation | CPT/HCPCS: 70553 ==

== ENCOUNTER 2022-12-13 07:17 | Outpatient (CLI) | payer OTHER, SELFPAY ==
[2022-12-13] MEDS ORDERED: Iopamidol 370 76% 100 ML VIAL ONE (12:20)
== END 2022-12-13 07:18 | disposition home or self-care (01) ==
LOC: CT 07:17
PROVIDERS: ATTEND Internal Medicine Hematology & Oncology
DX: C34.31 Malignant neoplasm of lower lobe, right bronchus or lung (principal); J98.4 Other disorders of lung; M79.89 Other specified soft tissue disorders
CPT/HCPCS: 71260; 74177; 82565

== ENCOUNTER 2022-12-21 10:55 | Inpatient (IN) | payer MEDICAID, SELFPAY ==
[2022-12-21 11:48] LABS: #Eosinphils 0.1 thou/uL (0.0-0.7); #Lymphocytes 1.2 thou/uL (1.20-3.40); #Monocytes 0.5 thou/uL (0.11-0.59); #Neutrophils 4.3 thou/uL (1.40-6.50); %Basophils 0.4 % (0.0-1.0); %Eosinophils 2.3 % (0.0-10.0); %Monocytes 7.5 % (0.0-10.0); %Neutrophils 69.8 % (42.0-75.0); Hemoglobin 12.3 g/dL (14.0-18.0); Mean Corpuscular HGB CONC 34.1 g/dL (32.0-36.0); Mean Corpuscular Hemoglobin 32.9 pg (27.0-31.0); Mean Corpuscular Volume 96.4 fl (78.0-98.0); Mean Platelet Volume 6.1 fL (7.4-10.4); Platelet Count 217 10x3/uL (130-400); Red Blood Cell (RBC) Count 3.73 mill/uL (4.70-6.10); White Blood Cell (WBC) Count 6.2 10x3/uL (4.8-10.8)
[2022-12-21 12:10] LABS: ALT (SGPT) 9 U/L (8-55); AST (SGOT) 13 U/L (5-34); Albumin 4.1 g/dL (3.5-5.0); Alkaline Phosphatase 116 U/L (40-110); Anion Gap 10 mmol/L (10-20); BUN (Urea Nitrogen) 11 mg/dL (8.4-25.7); Bilirubin, Total 0.5 mg/dL (0.2-1.2); Calc. Creatinine Clearance 0 mL/min (70-130); Carbon Dioxide 28 mmol/L (22-29); Chloride 104 mmol/L (98-107); Estimated GFR 102; Globulin 2.5 g/dL (2.4-3.5); Glucose 111 mg/dL (70-105); Potassium 3.7 mmol/L (3.5-5.1); Protein, Total 6.6 g/dL (6.0-8.3); Sodium 138 mmol/L (136-145)
[2022-12-21] MEDS ORDERED: Ketorolac Tromethamine 30 MG/ML VIAL ONE (13:39)
[2022-12-21] MEDS ORDERED: Acetaminophen 500 MG TAB ONE (13:39)
[2022-12-21] MEDS ORDERED: Ampicillin/Sulbactam 3 GM in Sodium Chloride 0.9% 100 ML IVPB SCH (14:00)
[2022-12-21] MEDS ORDERED: ISOVUE-370 76%-LOCM 1 ML ONE (14:59)
[2022-12-21] MEDS ORDERED: Ondansetron ODT 4 MG TAB PO PRN (17:31)
[2022-12-21] MEDS ORDERED: Ondansetron PF 4 MG/2 ML Vial IVP PRN (17:31)
[2022-12-21] MEDS ORDERED: Calcium Carbonate 500 MG ChewTAB PO PRN (17:31)
[2022-12-21] MEDS ORDERED: Senokot S 8.6-50 MG TAB PO PRN (17:31)
[2022-12-21] MEDS ORDERED: Dextrose 5% in Water 1,000 ML IV PRN (17:36)
[2022-12-21] MEDS ORDERED: Dextrose 50% Abboject 50 ML SYRINGE SLOW IVP PRN (17:36)
[2022-12-21] MEDS ORDERED: Insulin Regular 300 UNITS/3 ML VIAL SC PRN ×2 (17:36)
[2022-12-21] MEDS ORDERED: Electrolyte Replacement Protocol 1 EACH FS SCH (17:45)
[2022-12-21 18:17] VITALS: BMI 23.4
[2022-12-21] MEDS ORDERED: Famotidine 20 MG TAB PO SCH (21:00)
[2022-12-21] MEDS: Acetaminophen 325 MG TAB PO PRN (21:03)
[2022-12-21] MEDS ORDERED: Ketorolac Tromethamine 30 MG/ML VIAL IVP SCH (22:15)
[2022-12-22] MEDS: Acetaminophen 325 MG TAB PO PRN ×2 (03:53→15:53)
[2022-12-22] MEDS: Ketorolac Tromethamine 30 MG/ML VIAL IVP PRN ×2 (04:37→10:50)
[2022-12-22 06:30] LABS: #Eosinphils 0.3 thou/uL (0.0-0.7); #Lymphocytes 1.6 thou/uL (1.20-3.40); #Monocytes 0.7 thou/uL (0.11-0.59); #Neutrophils 5.1 thou/uL (1.40-6.50); %Basophils 0.3 % (0.0-1.0); %Eosinophils 4.1 % (0.0-10.0); %Lymphocytes 20.6 % (21.0-51.0); Hemoglobin 13.2 g/dL (14.0-18.0); Mean Corpuscular HGB CONC 33.7 g/dL (32.0-36.0); Mean Corpuscular Hemoglobin 32.5 pg (27.0-31.0); Mean Corpuscular Volume 96.5 fl (78.0-98.0); Mean Platelet Volume 6.8 fL (7.4-10.4); Platelet Count 236 10x3/uL (130-400); Red Blood Cell (RBC) Count 4.07 mill/uL (4.70-6.10); White Blood Cell (WBC) Count 7.8 10x3/uL (4.8-10.8)
[2022-12-22 06:55] LABS: Anion Gap 12 mmol/L (10-20); BUN (Urea Nitrogen) 12 mg/dL (8.4-25.7); Calc. Creatinine Clearance 95 mL/min (70-130); Calcium 9.3 mg/dL (7.8-10.44); Carbon Dioxide 26 mmol/L (22-29); Chloride 105 mmol/L (98-107); Estimated GFR 103; Glucose 101 mg/dL (70-105); Magnesium 2.3 mg/dL (1.6-2.6); Phosphorus 3.7 mg/dL (2.3-4.7); Sodium 139 mmol/L (136-145)
[2022-12-22] MEDS: HYDROcodone/Acetaminophen 5/325 mg Tablet PO PRN ×2 (08:46→14:45)
[2022-12-22] MEDS: Cyanocobalamin (Vitamin B-12) 1,000 MCG TAB PO SCH (08:48)
[2022-12-22] MEDS: Folic Acid 1 MG TAB PO SCH (08:48)
[2022-12-22] MEDS: Multivit, Therapeutic 1 TAB PO SCH (08:48)
[2022-12-22] MEDS: Ketorolac Tromethamine 30 MG/ML VIAL IVP SCH (18:20)
[2022-12-22] MEDS: Acetaminophen 500 MG TAB PO SCH (20:29)
[2022-12-22] MEDS ORDERED: QUEtiapine 300 MG TAB PO SCH (21:00)
[2022-12-23] MEDS: Ketorolac Tromethamine 30 MG/ML VIAL IVP SCH ×5 (00:13→23:33)
[2022-12-23 07:53] LABS: #Eosinphils 0.3 thou/uL (0.0-0.7); #Lymphocytes 1.7 thou/uL (1.20-3.40); #Monocytes 0.6 thou/uL (0.11-0.59); #Neutrophils 3.7 thou/uL (1.40-6.50); %Basophils 0.3 % (0.0-1.0); %Eosinophils 4.7 % (0.0-10.0); %Lymphocytes 26.9 % (21.0-51.0); %Neutrophils 59.1 % (42.0-75.0); Hemoglobin 12.9 g/dL (14.0-18.0); Mean Corpuscular HGB CONC 34.1 g/dL (32.0-36.0); Mean Corpuscular Hemoglobin 32.7 pg (27.0-31.0); Mean Corpuscular Volume 96.1 fl (78.0-98.0); Mean Platelet Volume 6.6 fL (7.4-10.4); Platelet Count 233 10x3/uL (130-400); Red Blood Cell (RBC) Count 3.93 mill/uL (4.70-6.10); White Blood Cell (WBC) Count 6.3 10x3/uL (4.8-10.8)
[2022-12-23 08:13] LABS: Anion Gap 12 mmol/L (10-20); BUN (Urea Nitrogen) 15 mg/dL (8.4-25.7); Calc. Creatinine Clearance 87 mL/min (70-130); Calcium 9.3 mg/dL (7.8-10.44); Carbon Dioxide 26 mmol/L (22-29); Chloride 106 mmol/L (98-107); Estimated GFR 101; Glucose 98 mg/dL (70-105); Potassium 3.8 mmol/L (3.5-5.1); Sodium 140 mmol/L (136-145)
[2022-12-23] MEDS: Folic Acid 1 MG TAB PO SCH (08:36)
[2022-12-23] MEDS: Acetaminophen 500 MG TAB PO SCH ×3 (08:36→20:36)
[2022-12-23] MEDS: Multivit, Therapeutic 1 TAB PO SCH (08:37)
[2022-12-23] MEDS: Cyanocobalamin (Vitamin B-12) 1,000 MCG TAB PO SCH (08:37)
[2022-12-23] MEDS ORDERED: Dexamethasone 4 mg/ml Vial SLOW IVP SCH (11:30)
[2022-12-23] MEDS: Dexamethasone 4 mg/ml Vial SLOW IVP SCH (17:12)
[2022-12-24] MEDS: Ketorolac Tromethamine 30 MG/ML VIAL IVP SCH ×2 (05:31→12:54)
[2022-12-24 08:05] VITALS: TEMP 97.9
[2022-12-24] MEDS: Cyanocobalamin (Vitamin B-12) 1,000 MCG TAB PO SCH (08:47)
[2022-12-24] MEDS: Multivit, Therapeutic 1 TAB PO SCH (08:47)
[2022-12-24] MEDS: Dexamethasone 4 mg/ml Vial SLOW IVP SCH (08:47)
[2022-12-24] MEDS: Acetaminophen 500 MG TAB PO SCH (08:48)
[2022-12-24] MEDS: Folic Acid 1 MG TAB PO SCH (08:48)
[2022-12-24 13:40] VITALS: BP 108/69
== END 2022-12-24 13:44 | disposition home or self-care (01) | DRG 55 ==
LOC: ERS 10:55 → T4-B 16:48
PROVIDERS: ADMIT Internal Medicine; ATTEND Internal Medicine
DX: C79.31 Secondary malignant neoplasm of brain (principal); C34.91 Malignant neoplasm of unspecified part of right bronchus or lung; Z20.822 Contact with and (suspected) exposure to COVID-19; K63.89 Other specified diseases of intestine; E11.9 Type 2 diabetes mellitus without complications; D63.8 Anemia in other chronic diseases classified elsewhere; F32.A Depression, unspecified; Z79.899 Other long term (current) drug therapy; Z79.84 Long term (current) use of oral hypoglycemic drugs
CPT/HCPCS: 36415; 36416; 70491; 70553; 80048; 80053; 83735; 84100; 85025; 85652; 86140; 96365; 96375; J0295; J1100; J1885; J3490; Q9966; U0003; U0005

== ENCOUNTER 2022-12-31 09:45 | Inpatient (IN) | payer MEDICAID, SELFPAY ==
[2023-01-01] MEDS ORDERED: fentaNYL PF 100 MCG/2 ML SYRINGE ONE (06:41)
[2023-01-01] MEDS ORDERED: Dexmedetomidine 200 MCG/2 ML VIAL ONE (06:41)
[2023-01-01] MEDS ORDERED: levETIRAcetam 500 MG/5 ML VIAL ONE (06:41)
[2023-01-01] MEDS ORDERED: Vecuronium 10 MG VIAL ONE (06:41)
[2023-01-01] MEDS ORDERED: Propofol 1,000 MG/100 ML VIAL IV ONE (06:42)
[2023-01-01] MEDS ORDERED: Bacitracin Zinc Ointment 30 gm TUBE ONE (06:51)
[2023-01-01] MEDS ORDERED: Thrombin 5000 UNITS/5 ML VIAL ONE (06:51)
[2023-01-01] MEDS ORDERED: Sodium Chloride 0.9% 100 ML ONE (07:18)
[2023-01-01] MEDS ORDERED: CEFAZOLIN 2 GM VIAL ONE (07:18)
[2023-01-01] MEDS ORDERED: FENTANYL 50 MCG/ML 1 ML VIAL ONE ×3 (07:24→11:37)
[2023-01-01] MEDS ORDERED: Phenylephrine 10 MG/ML VIAL ONE (07:43)
[2023-01-01] MEDS ORDERED: Rocuronium Bromide 10 MG/ML (10ML VIAL) ONE (07:43)
[2023-01-01] MEDS ORDERED: Ondansetron PF 4 MG/2 ML Vial ONE (07:43)
[2023-01-01] MEDS ORDERED: Lidocaine 1% PF 5 ML VIAL ONE (07:43)
[2023-01-01] MEDS ORDERED: Dexamethasone 20 MG/5 ML VIAL ONE (07:43)
[2023-01-01] MEDS ORDERED: PROPOFOL 200 MG/20 ML VIAL ONE (07:43)
[2023-01-01] MEDS ORDERED: SUGAMMADEX SODIUM 200 MG/2 ML VIAL ONE (09:46)
[2023-01-01] MEDS ORDERED: Ondansetron HCl/PF 4 MG/2 ML Vial IVP PRN (09:47)
[2023-01-01] MEDS ORDERED: Promethazine HCl 25 MG/ML VIAL IM PRN (09:47)
[2023-01-01] MEDS ORDERED: Ondansetron PF 4 MG/2 ML Vial IVP PRN (10:14)
[2023-01-01] MEDS ORDERED: hydrALAZINE 20 MG/ML VIAL SLOW IVP PRN (10:14)
[2023-01-01] MEDS ORDERED: Acetaminophen 325 MG TAB PO PRN (10:14)
[2023-01-01] MEDS ORDERED: levETIRAcetam 500 MG/5 ML VIAL SLOW IVP SCH (11:00)
[2023-01-01] MEDS: Sodium Chloride 0.9% 1,000 ML IV SCH ×2 (12:55→22:59)
[2023-01-01] MEDS: Morphine 2 MG/ML VIAL SLOW IVP PRN ×4 (12:56→18:47)
[2023-01-01] MEDS: Acetaminophen/Codeine 30-300mg Tablet PO PRN ×2 (14:18→18:46)
[2023-01-01] MEDS: CEFAZOLIN 2 GM in Sodium Chloride 0.9% 100 ML IVPB SCH ×2 (14:19→20:36)
[2023-01-01] MEDS: HYDROcodone/Acetaminophen 7.5/325 mg Tablet PO PRN (16:01)
[2023-01-01] MEDS: Dexamethasone 4 MG TAB PO SCH (20:36)
[2023-01-01] MEDS: levETIRAcetam 500 MG TAB PO SCH (20:36)
[2023-01-02] MEDS: Morphine 2 MG/ML VIAL SLOW IVP PRN (03:29)
[2023-01-02 04:39] LABS: #Basophils 0.1 thou/uL (0.0-0.2); #Lymphocytes 1.5 thou/uL (1.20-3.40); #Monocytes 1.8 thou/uL (0.11-0.59); #Neutrophils 14.9 thou/uL (1.40-6.50); %Basophils 0.6 % (0.0-1.0); %Eosinophils 0.2 % (0.0-10.0); %Lymphocytes 8.2 % (21.0-51.0); %Monocytes 9.7 % (0.0-10.0); %Neutrophils 81.3 % (42.0-75.0); Hemoglobin 13.5 g/dL (14.0-18.0); Mean Corpuscular HGB CONC 34.7 g/dL (32.0-36.0); Mean Corpuscular Volume 95.1 fl (78.0-98.0); Mean Platelet Volume 7.2 fL (7.4-10.4); Platelet Count 245 10x3/uL (130-400); RBC Distribution Width 10.9 % (11.5-14.5); White Blood Cell (WBC) Count 18.3 10x3/uL (4.8-10.8)
[2023-01-02 04:50] LABS: Anion Gap 13 mmol/L (10-20); BUN (Urea Nitrogen) 11 mg/dL (8.4-25.7); Calc. Creatinine Clearance 122 mL/min (70-130); Calcium 8.8 mg/dL (7.8-10.44); Carbon Dioxide 23 mmol/L (22-29); Chloride 103 mmol/L (98-107); Estimated GFR 111; Glucose 113 mg/dL (70-105); Potassium 3.7 mmol/L (3.5-5.1); Sodium 135 mmol/L (136-145)
[2023-01-02] MEDS: CEFAZOLIN 2 GM in Sodium Chloride 0.9% 100 ML IVPB SCH ×3 (05:08→21:31)
[2023-01-02] MEDS: levETIRAcetam 500 MG TAB PO SCH ×2 (09:04→21:31)
[2023-01-02] MEDS: Dexamethasone 4 MG TAB PO SCH ×3 (09:04→21:31)
[2023-01-02] MEDS: HYDROcodone/Acetaminophen 7.5/325 mg Tablet PO PRN ×2 (09:05→21:31)
[2023-01-02] MEDS: Sodium Chloride 0.9% 1,000 ML IV SCH (10:57)
[2023-01-02 11:38] VITALS: BMI 18.8
[2023-01-03] MEDS: Sodium Chloride 0.9% 1,000 ML IV SCH ×2 (04:20→13:33)
[2023-01-03] MEDS: CEFAZOLIN 2 GM in Sodium Chloride 0.9% 100 ML IVPB SCH ×3 (05:33→21:55)
[2023-01-03] MEDS: Dexamethasone 4 MG TAB PO SCH ×2 (08:56)
[2023-01-03] MEDS: HYDROcodone/Acetaminophen 7.5/325 mg Tablet PO PRN (08:57)
[2023-01-03] MEDS: levETIRAcetam 500 MG TAB PO SCH ×2 (08:57→21:56)
[2023-01-03] MEDS ORDERED: Acetaminophen/Codeine 30-300mg Tablet PO PRN (09:52)
[2023-01-03] MEDS: Dexamethasone 1 MG TAB PO SCH (21:56)
[2023-01-04] MEDS: Sodium Chloride 0.9% 1,000 ML IV SCH (03:12)
[2023-01-04] MEDS: CEFAZOLIN 2 GM in Sodium Chloride 0.9% 100 ML IVPB SCH (05:55)
[2023-01-04] MEDS: Dexamethasone 1 MG TAB PO SCH (08:50)
[2023-01-04] MEDS: levETIRAcetam 500 MG TAB PO SCH (08:50)
[2023-01-04] MEDS: Dexamethasone 4 MG TAB PO SCH (08:50)
[2023-01-04] MEDS: Acetaminophen/Codeine 30-300mg Tablet PO PRN (08:50)
[2023-01-04 12:52] VITALS: BP 112/69; TEMP 97
[2023-01-05] MEDS ORDERED: Dexamethasone 1 MG TAB PO SCH (21:00)
[2023-01-07] MEDS ORDERED: Dexamethasone 1 MG TAB PO SCH (21:00)
== END 2023-01-04 13:59 | disposition home or self-care (01) | DRG 26 ==
LOC: SURG A 01-01 05:41 → CCU 01-01 12:01 → SURG A 01-02 17:56
PROVIDERS: ADMIT Surgery; ATTEND Surgery
PROC: 00B70ZZ Excision of Cerebral Hemisphere, Open Approach (ICD-10-PCS; principal; 2023-01-01)
DX: C79.31 Secondary malignant neoplasm of brain (principal); C34.90 Malignant neoplasm of unspecified part of unspecified bronchus or lung; F32.A Depression, unspecified; E11.9 Type 2 diabetes mellitus without complications; Z90.49 Acquired absence of other specified parts of digestive tract; Z98.890 Other specified postprocedural states; Z79.899 Other long term (current) drug therapy; Z79.84 Long term (current) use of oral hypoglycemic drugs
CPT/HCPCS: 70450; 80048; 85025; 88307; 88313; 88341; 88342; 93970; C1713; J0360; J1100; J1953; J2272; J2370; J2405; J2704; J3010; J3490; J7050; J8540

== ENCOUNTER 2023-01-31 05:34 | Emergency (ER) | payer SELFPAY ==
[2023-01-31] MEDS ORDERED: Metoclopramide HCl 10 MG/2 ML VIAL ONE (05:40)
[2023-01-31] MEDS ORDERED: Ondansetron PF 4 MG/2 ML Vial ONE (06:26)
== END 2023-01-31 12:17 | disposition home or self-care (01) ==
LOC: EDUNIT# 05:34 → ERS 05:34
DX: R51.9 Headache, unspecified (principal); G89.18 Other acute postprocedural pain
CPT/HCPCS: 70450; 96365; 96375; J2405; J2765

== ENCOUNTER 2023-02-01 00:03 | Inpatient (IN) | payer BC, MEDICAID, SELFPAY ==
[2023-02-01] MEDS ORDERED: Lidocaine 1% PF 5 ML VIAL ONE (02:00)
[2023-02-01] MEDS ORDERED: Promethazine HCl 25 MG/ML VIAL IM PRN (02:57)
[2023-02-01] MEDS ORDERED: Ondansetron PF 4 MG/2 ML Vial IVP PRN (02:57)
[2023-02-01] MEDS ORDERED: diphenhydrAMINE 50 MG/ML VIAL IVP PRN (02:57)
[2023-02-01] MEDS ORDERED: Morphine 4 MG/ML VIAL ONE (03:56)
[2023-02-01] MEDS ORDERED: cefTRIAXone (ROCEPHIN) 2 GM VIAL ONE (03:56)
[2023-02-01] MEDS: Sodium Chloride 0.9% 1,000 ML IV SCH ×2 (04:24→13:40)
[2023-02-01] MEDS ORDERED: VANCOMYCIN 1.25 GM/250 ML BAG 1.25 GM in Premix Bag 1 BAG IVPB SCH (05:00)
[2023-02-01] MEDS ORDERED: Ampicillin 2 GM VIAL ONE (05:00)
[2023-02-01 08:26] LABS: #Neutrophils 13.4 thou/uL (1.40-6.50); %Basophils 0.1 % (0.0-1.0); %Eosinophils 0.2 % (0.0-10.0); %Lymphocytes 6.7 % (21.0-51.0); %Monocytes 6.6 % (0.0-10.0); %Neutrophils 86.4 % (42.0-75.0); Hemoglobin 13.5 g/dL (14.0-18.0); Mean Corpuscular HGB CONC 33.5 g/dL (32.0-36.0); Mean Corpuscular Volume 95.6 fl (78.0-98.0); Mean Platelet Volume 5.9 fL (7.4-10.4); Platelet Count 227 10x3/uL (130-400); RBC Distribution Width 11.3 % (11.5-14.5); Red Blood Cell (RBC) Count 4.23 mill/uL (4.70-6.10); White Blood Cell (WBC) Count 15.6 10x3/uL (4.8-10.8)
[2023-02-01] MEDS ORDERED: Morphine 2 MG/ML VIAL ONE ×2 (08:32→10:45)
[2023-02-01] MEDS: Morphine 2 MG/ML VIAL SLOW IVP PRN ×2 (08:39→10:54)
[2023-02-01 08:46] LABS: Anion Gap 14 mmol/L (10-20); BUN (Urea Nitrogen) 14 mg/dL (8.4-25.7); Calc. Creatinine Clearance 0 mL/min (70-130); Carbon Dioxide 23 mmol/L (22-29); Chloride 99 mmol/L (98-107); Estimated GFR 105; Glucose 128 mg/dL (70-105); Potassium 4.4 mmol/L (3.5-5.1); Sodium 132 mmol/L (136-145)
[2023-02-01] MEDS ORDERED: VANCOMYCIN 1.25 GM/250 ML BAG IVPB SCH (09:00)
[2023-02-01] MEDS ORDERED: Cefepime 1 GM VIAL ONE (10:12)
[2023-02-01] MEDS: Cefepime 1 GM in Sodium Chloride 0.9% 100 ML IVPB SCH ×2 (10:17→20:32)
[2023-02-01] MEDS ORDERED: Magnevist 469MG/ML 20 ML VIAL ONE (10:31)
[2023-02-01] MEDS: metroNIDAZOLE 500 MG in Premix Bag 1 BAG IVPB SCH ×2 (13:40→21:56)
[2023-02-01] MEDS ORDERED: Dextrose 50% Abboject 50 ML SYRINGE SLOW IVP PRN (14:19)
[2023-02-01] MEDS ORDERED: Dextrose 5% in Water 1,000 ML IV PRN (14:19)
[2023-02-01] MEDS: HYDROcodone/Acetaminophen 10/325 mg Tablet PO PRN ×2 (16:16→20:31)
[2023-02-01] MEDS: Vancomycin 1 GM in Premix Bag 1 BAG IVPB SCH (17:55)
[2023-02-02] MEDS: HYDROcodone/Acetaminophen 10/325 mg Tablet PO PRN ×2 (05:20→12:10)
[2023-02-02] MEDS: metroNIDAZOLE 500 MG in Premix Bag 1 BAG IVPB SCH ×3 (05:22→21:58)
[2023-02-02] MEDS: Vancomycin 1 GM in Premix Bag 1 BAG IVPB SCH ×2 (05:30→19:50)
[2023-02-02] MEDS: Sodium Chloride 0.9% 1,000 ML IV SCH ×2 (06:45→19:48)
[2023-02-02 07:40] LABS: #Lymphocytes 0.6 thou/uL (1.20-3.40); #Monocytes 0.9 thou/uL (0.11-0.59); #Neutrophils 12.8 thou/uL (1.40-6.50); %Basophils 0.1 % (0.0-1.0); %Eosinophils 0.1 % (0.0-10.0); %Lymphocytes 4.4 % (21.0-51.0); %Monocytes 5.9 % (0.0-10.0); %Neutrophils 89.5 % (42.0-75.0); Anion Gap 11 mmol/L (10-20); BUN (Urea Nitrogen) 13 mg/dL (8.4-25.7); Calc. Creatinine Clearance 115 mL/min (70-130); Calcium 8.5 mg/dL (7.8-10.44); Carbon Dioxide 23 mmol/L (22-29); Chloride 96 mmol/L (98-107); Estimated GFR 110; Glucose 171 mg/dL (70-105); Hemoglobin 12.5 g/dL (14.0-18.0); Mean Corpuscular HGB CONC 36.2 g/dL (32.0-36.0); Mean Corpuscular Hemoglobin 34.5 pg (27.0-31.0); Mean Corpuscular Volume 95.2 fl (78.0-98.0); Mean Platelet Volume 6.6 fL (7.4-10.4); Platelet Count 196 10x3/uL (130-400); Potassium 3.3 mmol/L (3.5-5.1); RBC Distribution Width 11.1 % (11.5-14.5); Red Blood Cell (RBC) Count 3.62 mill/uL (4.70-6.10); Sodium 127 mmol/L (136-145); White Blood Cell (WBC) Count 14.3 10x3/uL (4.8-10.8)
[2023-02-02 07:54] LABS: Hemoglobin A1c 5.6 % (4.0-6.0)
[2023-02-02] MEDS: Cefepime 1 GM in Sodium Chloride 0.9% 100 ML IVPB SCH (08:48)
[2023-02-02] MEDS ORDERED: Potassium Chloride 20 MEQ TAB PO SCH (14:00)
[2023-02-02 14:25] LABS: INR-International Normal Ratio 1.1; PTT 31.6 sec (22.9-36.1); Prothrombin Time 14.7 sec (12.0-14.7)
[2023-02-02] MEDS ORDERED: Potassium Chloride 40 MEQ in Premix Bag 1 BAG IVPB SCH (14:30)
[2023-02-02] MEDS ORDERED: fentaNYL PF 100 MCG/2 ML SYRINGE ONE (14:43)
[2023-02-02] MEDS: Potassium Chloride 20 MEQ in Premix Bag 1 BAG IVPB SCH ×2 (15:02→17:47)
[2023-02-02] MEDS ORDERED: Lidocaine 1% (PF) 30 ML VIAL ONE (15:21)
[2023-02-02] MEDS ORDERED: EPINEPHrine 1 MG/ML AMP ONE (15:21)
[2023-02-02] MEDS ORDERED: Thrombin 5000 UNITS/5 ML VIAL ONE (15:22)
[2023-02-02] MEDS ORDERED: Bacitracin Zinc Ointment 30 gm TUBE ONE (15:22)
[2023-02-02] MEDS ORDERED: Neomycin-Polymyxin 1 ML AMP ONE ×2 (15:22→17:16)
[2023-02-02] MEDS ORDERED: Lidocaine 1% PF 5 ML VIAL ONE (16:11)
[2023-02-02] MEDS ORDERED: Esmolol 100 MG/10 ML VIAL ONE (16:11)
[2023-02-02] MEDS ORDERED: PROPOFOL 200 MG/20 ML VIAL ONE (16:11)
[2023-02-02] MEDS ORDERED: Rocuronium Bromide 10 MG/ML (10ML VIAL) ONE (16:11)
[2023-02-02] MEDS ORDERED: Dexamethasone 20 MG/5 ML VIAL ONE (16:11)
[2023-02-02] MEDS ORDERED: Ondansetron PF 4 MG/2 ML Vial ONE (16:11)
[2023-02-02] MEDS ORDERED: Phenylephrine 10 MG/ML VIAL ONE ×2 (16:11→16:58)
[2023-02-02] MEDS ORDERED: fentaNYL 50 mcg/mL 1 mL Vial ONE (16:17)
[2023-02-02] MEDS ORDERED: Famotidine/PF 20 mg/2ml Vial ONE (16:17)
[2023-02-02] MEDS ORDERED: Vancomycin 1 GM VIAL ONE (17:20)
[2023-02-02] MEDS: Cefepime 2 GM in Sodium Chloride 0.9% 100 ML IVPB SCH (17:47)
[2023-02-02] MEDS ORDERED: SUGAMMADEX SODIUM 200 MG/2 ML VIAL ONE (17:58)
[2023-02-02] MEDS ORDERED: Midazolam HCl 2 mg/2 ml Vial ONE (18:33)
[2023-02-02] MEDS ORDERED: Electrolyte Replacement Protocol 1 EACH FS PRN (21:00)
[2023-02-02] MEDS: HumaLOG 300 UNITS/3 ML VIAL SC PRN (22:01)
[2023-02-02] MEDS ORDERED: Labetalol HCl 100 MG/20 ML VIAL SLOW IVP PRN (22:07)
[2023-02-02 22:09] LABS: Vancomycin, Trough 23.6 ug/mL
[2023-02-02] MEDS: hydrALAZINE 20 MG/ML VIAL SLOW IVP PRN (22:16)
[2023-02-03] MEDS: Cefepime 2 GM in Sodium Chloride 0.9% 100 ML IVPB SCH ×3 (01:29→16:26)
[2023-02-03 03:58] LABS: #Lymphocytes 0.2 thou/uL (1.20-3.40); #Monocytes 0.5 thou/uL (0.11-0.59); #Neutrophils 10.6 thou/uL (1.40-6.50); %Eosinophils 0.1 % (0.0-10.0); %Monocytes 4.6 % (0.0-10.0); %Neutrophils 93.3 % (42.0-75.0); Hemoglobin 12.1 g/dL (14.0-18.0); Mean Corpuscular HGB CONC 37.7 g/dL (32.0-36.0); Mean Corpuscular Hemoglobin 35.4 pg (27.0-31.0); Mean Platelet Volume 6.4 fL (7.4-10.4); Platelet Count 205 10x3/uL (130-400); RBC Distribution Width 10.8 % (11.5-14.5); Red Blood Cell (RBC) Count 3.41 mill/uL (4.70-6.10); White Blood Cell (WBC) Count 11.4 10x3/uL (4.8-10.8)
[2023-02-03 04:18] LABS: Anion Gap 14 mmol/L (10-20); BUN (Urea Nitrogen) 13 mg/dL (8.4-25.7); CRP (Inflammatory) 16.08 mg/dL (= or < 0.5); Calc. Creatinine Clearance 125 mL/min (70-130); Calcium 8.4 mg/dL (7.8-10.44); Carbon Dioxide 20 mmol/L (22-29); Chloride 99 mmol/L (98-107); Estimated GFR 113; Glucose 160 mg/dL (70-105); Potassium 3.6 mmol/L (3.5-5.1); Sodium 129 mmol/L (136-145)
[2023-02-03 06:15] LABS: Vancomycin, Trough 5.4 ug/mL
[2023-02-03] MEDS: Morphine 2 MG/ML VIAL SLOW IVP PRN ×2 (06:17→09:39)
[2023-02-03] MEDS: metroNIDAZOLE 500 MG in Premix Bag 1 BAG IVPB SCH ×3 (06:19→21:56)
[2023-02-03] MEDS: Vancomycin 1 GM in Premix Bag 1 BAG IVPB SCH ×3 (06:29→15:23)
[2023-02-03] MEDS: Sodium Chloride 0.9% 1,000 ML IV SCH (08:41)
[2023-02-03] MEDS: HYDROcodone/Acetaminophen 10/325 mg Tablet PO PRN ×2 (09:40→16:29)
[2023-02-04] MEDS: Vancomycin 1 GM in Premix Bag 1 BAG IVPB SCH ×2 (00:19→09:13)
[2023-02-04] MEDS: Cefepime 2 GM in Sodium Chloride 0.9% 100 ML IVPB SCH ×3 (00:38→17:43)
[2023-02-04] MEDS: HYDROcodone/Acetaminophen 7.5/325 mg Tablet PO PRN ×2 (03:16→19:44)
[2023-02-04] MEDS: Sodium Chloride 0.9% 1,000 ML IV SCH ×2 (04:43→12:23)
[2023-02-04] MEDS: metroNIDAZOLE 500 MG in Premix Bag 1 BAG IVPB SCH ×3 (05:11→22:08)
[2023-02-04 08:09] LABS: Vancomycin, Trough 10.3 ug/mL
[2023-02-04] MEDS: VANCOMYCIN 1.25 GM/250 ML BAG 1.25 GM in Premix Bag 1 BAG IVPB SCH ×2 (09:42→18:23)
[2023-02-04] MEDS: HYDROcodone/Acetaminophen 10/325 mg Tablet PO PRN ×2 (09:47→14:40)
[2023-02-04] MEDS: Morphine 2 MG/ML VIAL SLOW IVP PRN (09:50)
[2023-02-04] MEDS: HumaLOG 300 UNITS/3 ML VIAL SC PRN (20:38)
[2023-02-05] MEDS: Cefepime 2 GM in Sodium Chloride 0.9% 100 ML IVPB SCH ×3 (00:12→17:00)
[2023-02-05] MEDS: Sodium Chloride 0.9% 1,000 ML IV SCH ×2 (01:20→15:46)
[2023-02-05] MEDS: Morphine 2 MG/ML VIAL SLOW IVP PRN (01:32)
[2023-02-05] MEDS: VANCOMYCIN 1.25 GM/250 ML BAG 1.25 GM in Premix Bag 1 BAG IVPB SCH ×2 (01:50→11:30)
[2023-02-05] MEDS: metroNIDAZOLE 500 MG in Premix Bag 1 BAG IVPB SCH (05:35)
[2023-02-05] MEDS: HYDROcodone/Acetaminophen 7.5/325 mg Tablet PO PRN (05:37)
[2023-02-05] MEDS ORDERED: Dexamethasone 4 mg/ml Vial SLOW IVP SCH (08:15)
[2023-02-05 08:40] LABS: Vancomycin, Trough 8.9 ug/mL
[2023-02-05 09:32] LABS: CSF Source CSF
[2023-02-05 09:33] LABS: CSF RBC Count - Manual 19 /cu.mm (None Seen); CSF WBC/NonHematics Count-Man 0 /cu.mm (0-5); Clarity Clear (Clear)
[2023-02-05] MEDS: HYDROcodone/Acetaminophen 10/325 mg Tablet PO PRN ×2 (09:42→20:56)
[2023-02-05 09:57] LABS: CSF, Glucose 46 mg/dl (40-70)
[2023-02-05 11:00] LABS: CSF, Protein 505 mg/dL (15-40)
[2023-02-05] MEDS: Vancomycin 1.5 GRAM/300 ML BAG 1.5 GM in Premix Bag 1 BAG IVPB SCH ×2 (11:27→19:57)
[2023-02-05] MEDS ORDERED: Morphine 4 MG/ML VIAL SLOW IVP PRN (13:38)
[2023-02-05] MEDS: Dexamethasone 1 MG TAB PO SCH (17:00)
[2023-02-05] MEDS: HumaLOG 300 UNITS/3 ML VIAL SC PRN (20:56)
[2023-02-06] MEDS: Cefepime 2 GM in Sodium Chloride 0.9% 100 ML IVPB SCH ×3 (01:36→16:36)
[2023-02-06] MEDS: Vancomycin 1.5 GRAM/300 ML BAG 1.5 GM in Premix Bag 1 BAG IVPB SCH (02:23)
[2023-02-06] MEDS: Sodium Chloride 0.9% 1,000 ML IV SCH ×2 (04:25→16:36)
[2023-02-06] MEDS: HumaLOG 300 UNITS/3 ML VIAL SC PRN ×2 (06:11→13:09)
[2023-02-06] MEDS: Dexamethasone 1 MG TAB PO SCH ×2 (08:51→16:36)
[2023-02-06] MEDS: HYDROcodone/Acetaminophen 7.5/325 mg Tablet PO PRN ×2 (09:37→23:32)
[2023-02-06 10:07] LABS: #Eosinphils 0.1 thou/uL (0.0-0.7); #Lymphocytes 1.3 thou/uL (1.20-3.40); #Monocytes 0.9 thou/uL (0.11-0.59); #Neutrophils 8.4 thou/uL (1.40-6.50); %Basophils 0.1 % (0.0-1.0); %Eosinophils 0.6 % (0.0-10.0); %Neutrophils 79.3 % (42.0-75.0); Hemoglobin 13.1 g/dL (14.0-18.0); Mean Corpuscular HGB CONC 35.8 g/dL (32.0-36.0); Mean Corpuscular Hemoglobin 33.8 pg (27.0-31.0); Mean Corpuscular Volume 94.6 fl (78.0-98.0); Mean Platelet Volume 6.1 fL (7.4-10.4); Platelet Count 284 10x3/uL (130-400); RBC Distribution Width 10.8 % (11.5-14.5); Red Blood Cell (RBC) Count 3.87 mill/uL (4.70-6.10); White Blood Cell (WBC) Count 10.6 10x3/uL (4.8-10.8)
[2023-02-06 10:34] LABS: Anion Gap 13 mmol/L (10-20); BUN (Urea Nitrogen) 16 mg/dL (8.4-25.7); Calc. Creatinine Clearance 105 mL/min (70-130); Calcium 8.8 mg/dL (7.8-10.44); Carbon Dioxide 23 mmol/L (22-29); Chloride 101 mmol/L (98-107); Estimated GFR 107; Glucose 140 mg/dL (70-105); Potassium 3.9 mmol/L (3.5-5.1); Sodium 133 mmol/L (136-145)
[2023-02-06] MEDS: Acetaminophen 325 MG TAB PO PRN (15:23)
[2023-02-06] MEDS ORDERED: cefTRIAXone\\ROCEPHIN 2 GM in Sodium Chloride 0.9% 100 ML IVPB SCH (18:00)
[2023-02-06] MEDS ORDERED: Bisacodyl 5 MG TAB PO PRN (18:11)
[2023-02-06] MEDS ORDERED: Bisacodyl 10 MG SUPP PR PRN (18:11)
[2023-02-06] MEDS ORDERED: Milk Of Magnesia 30 ML UDCUP PO PRN (18:11)
[2023-02-06] MEDS: Docusate 100 MG CAP PO SCH (20:05)
[2023-02-07] MEDS ORDERED: cefTRIAXone\\ROCEPHIN 2 GM in Sodium Chloride 0.9% 100 ML IVPB SCH ×2 (04:00→12:45)
[2023-02-07] MEDS: HYDROcodone/Acetaminophen 7.5/325 mg Tablet PO PRN ×2 (04:28→08:44)
[2023-02-07] MEDS: Sodium Chloride 0.9% 1,000 ML IV SCH ×2 (06:46→21:57)
[2023-02-07] MEDS: HumaLOG 300 UNITS/3 ML VIAL SC PRN ×3 (06:49→17:25)
[2023-02-07] MEDS: Dexamethasone 1 MG TAB PO SCH ×2 (08:44→17:01)
[2023-02-07] MEDS: Docusate 100 MG CAP PO SCH ×2 (08:44→21:58)
[2023-02-07] MEDS: HYDROcodone/Acetaminophen 10/325 mg Tablet PO PRN (15:30)
[2023-02-07] MEDS: cefTRIAXone\\ROCEPHIN 2 GM in Sodium Chloride 0.9% 100 ML IVPB SCH (21:58)
[2023-02-08] MEDS: Acetaminophen 325 MG TAB PO PRN ×2 (00:19→09:09)
[2023-02-08 05:58] LABS: Anion Gap 13 mmol/L (10-20); BUN (Urea Nitrogen) 13 mg/dL (8.4-25.7); Calc. Creatinine Clearance 108 mL/min (70-130); Calcium 8.6 mg/dL (7.8-10.44); Carbon Dioxide 22 mmol/L (22-29); Chloride 100 mmol/L (98-107); Estimated GFR 109; Glucose 157 mg/dL (70-105); Sodium 131 mmol/L (136-145)
[2023-02-08] MEDS: HYDROcodone/Acetaminophen 10/325 mg Tablet PO PRN ×4 (06:09→22:23)
[2023-02-08] MEDS: Dexamethasone 1 MG TAB PO SCH ×2 (09:07→17:50)
[2023-02-08] MEDS: cefTRIAXone\\ROCEPHIN 2 GM in Sodium Chloride 0.9% 100 ML IVPB SCH ×2 (09:08→20:13)
[2023-02-08] MEDS: Docusate 100 MG CAP PO SCH ×2 (09:08→20:14)
[2023-02-08] MEDS: Sodium Chloride 0.9% 1,000 ML IV SCH (11:38)
[2023-02-08] MEDS: HumaLOG 300 UNITS/3 ML VIAL SC PRN ×3 (11:48→20:44)
[2023-02-08 12:15] LABS: Fungus Stain Final report (.)
[2023-02-08 12:15] LABS: Fungus Stain Final report (.)
[2023-02-08 12:15] LABS: Fungus Stain Final report (.)
[2023-02-08] MEDS: hydrALAZINE 20 MG/ML VIAL SLOW IVP PRN (22:23)
[2023-02-09] MEDS: Dexamethasone 1 MG TAB PO SCH ×2 (09:51→16:23)
[2023-02-09] MEDS: Docusate 100 MG CAP PO SCH ×2 (09:52→20:00)
[2023-02-09] MEDS: cefTRIAXone\\ROCEPHIN 2 GM in Sodium Chloride 0.9% 100 ML IVPB SCH ×2 (09:52→20:00)
[2023-02-09] MEDS: HYDROcodone/Acetaminophen 10/325 mg Tablet PO PRN ×2 (10:10→16:23)
[2023-02-09] MEDS: HumaLOG 300 UNITS/3 ML VIAL SC PRN (17:52)
[2023-02-10] MEDS: HYDROcodone/Acetaminophen 10/325 mg Tablet PO PRN ×4 (01:22→16:49)
[2023-02-10] MEDS: Dexamethasone 1 MG TAB PO SCH ×2 (07:59→16:44)
[2023-02-10] MEDS: Docusate 100 MG CAP PO SCH (07:59)
[2023-02-10] MEDS: cefTRIAXone\\ROCEPHIN 2 GM in Sodium Chloride 0.9% 100 ML IVPB SCH (08:00)
[2023-02-10 16:19] VITALS: BP 105/59; TEMP 98.2
== END 2023-02-10 18:05 | disposition home or self-care (01) | DRG 856 ==
LOC: ERS 00:03 → ERHOLD 02:57 → EDUNIT# 02:57 → SURG B 12:33 → CCU 02-02 16:29 → NEURO 02-07 15:12
PROVIDERS: ADMIT Neurological Surgery; ATTEND Neurological Surgery
PROC: 0WC10ZZ Extirpation of Matter from Cranial Cavity, Open Approach (ICD-10-PCS; principal; 2023-02-02)
PROC: 009600Z Drainage of Cerebral Ventricle with Drainage Device, Open Approach (ICD-10-PCS; 2023-02-02)
PROC: 00B00ZZ Excision of Brain, Open Approach (ICD-10-PCS; 2023-02-02)
DX: T81.42XA Infection following a procedure, deep incisional surgical site, initial encounter (principal); G03.9 Meningitis, unspecified; T81.32XA Disruption of internal operation (surgical) wound, not elsewhere classified, initial encounter; C34.90 Malignant neoplasm of unspecified part of unspecified bronchus or lung; C79.31 Secondary malignant neoplasm of brain; G91.9 Hydrocephalus, unspecified; E87.1 Hypo-osmolality and hyponatremia; G96.08 Other cranial cerebrospinal fluid leak; Z51.5 Encounter for palliative care; E11.9 Type 2 diabetes mellitus without complications; F32.A Depression, unspecified; E87.6 Hypokalemia; D63.8 Anemia in other chronic diseases classified elsewhere; Z98.890 Other specified postprocedural states; Z90.49 Acquired absence of other specified parts of digestive tract; Y83.8 Other surgical procedures as the cause of abnormal reaction of the patient, or of later complication, without mention of misadventure at the time of the procedure
CPT/HCPCS: 36415; 36416; 70450; 70553; 80048; 80202; 82945; 83036; 84145; 84157; 85025; 85610; 85730; 86140; 87040; 87070; 87076; 87077; 87081; 87102; 87186; 87205; 87206; 89051; 93970; 96374; 96375; A9579; C1713; C1729; C1789; J0171; J0290; J0360; J0692; J0696; J1100; J1650; J1815; J2001; J2250; J2270; J2272; J2370; J2405; J2704; J3010; J3370; J3370-JW; J3490; J7050; J8540; S0028

== ENCOUNTER 2023-02-21 20:30 | Emergency (ER) | payer SELFPAY ==
[2023-02-21] MEDS ORDERED: Ondansetron PF 4 MG/2 ML Vial ONE (21:20)
[2023-02-21] MEDS ORDERED: Morphine 4 MG/ML VIAL ONE (21:20)
[2023-02-21 22:39] LABS: #Basophils 0.1 thou/uL (0.0-0.2); #Eosinphils 0.1 thou/uL (0.0-0.7); #Monocytes 1.1 thou/uL (0.11-0.59); #Neutrophils 7.6 thou/uL (1.40-6.50); %Basophils 0.6 % (0.0-1.0); %Eosinophils 1.3 % (0.0-10.0); %Lymphocytes 14.4 % (21.0-51.0); %Monocytes 9.8 % (0.0-10.0); Hemoglobin 12.4 g/dL (14.0-18.0); Mean Corpuscular HGB CONC 33.3 g/dL (32.0-36.0); Mean Corpuscular Hemoglobin 31.8 pg (27.0-31.0); Mean Corpuscular Volume 95.4 fl (78.0-98.0); Mean Platelet Volume 8.2 fL (7.4-10.4); Platelet Count 225 10x3/uL (130-400); RBC Distribution Width 12.2 % (11.5-14.5); White Blood Cell (WBC) Count 11.2 10x3/uL (4.8-10.8)
[2023-02-21 22:53] LABS: INR-International Normal Ratio 0.9; Prothrombin Time 12.5 sec (12.0-14.7)
[2023-02-21 22:54] LABS: PTT 25.4 sec (22.9-36.1)
[2023-02-21 23:00] LABS: ALT (SGPT) 15 U/L (8-55); AST (SGOT) 11 U/L (5-34); Albumin 3.7 g/dL (3.5-5.0); Alkaline Phosphatase 125 U/L (40-110); Anion Gap 12 mmol/L (10-20); BUN (Urea Nitrogen) 12 mg/dL (8.4-25.7); Bilirubin, Total 0.5 mg/dL (0.2-1.2); Calc. Creatinine Clearance 0 mL/min (70-130); Carbon Dioxide 27 mmol/L (22-29); Chloride 100 mmol/L (98-107); Estimated GFR 108; Globulin 2.5 g/dL (2.4-3.5); Glucose 144 mg/dL (70-105); Potassium 4.2 mmol/L (3.5-5.1); Protein, Total 6.2 g/dL (6.0-8.3); Sodium 135 mmol/L (136-145)
[2023-02-22] MEDS ORDERED: Morphine 4 MG/ML VIAL ONE ×2 (00:18→02:51)
== END 2023-02-22 04:32 | disposition home or self-care (01) ==
LOC: ERS 20:30
DX: R51.9 Headache, unspecified (principal); E11.9 Type 2 diabetes mellitus without complications; Z79.899 Other long term (current) drug therapy
CPT/HCPCS: 36415; 70450; 71045; 80053; 85025; 85610; 85730; 96374; 96375; 96376; J2270; J2405